=== PATIENT | female | born 1970 | race Caucasian/White ===

== ENCOUNTER 2017-01-14 07:33 | Day surgery (SDC) | payer BC ==
[2017-01-12 09:35] VITALS: BMI 26.6
[~2017-01-14 07:33] MED LIST: HEPARIN SODIUM,PORCINE 5,000 UNIT/ML 1 ML VIAL SQ ONE; ceFAZolin IN SWFI 2 GM/20 ML SYRINGE IVP ONE
[2017-01-14] MEDS ORDERED: ONDANSETRON 4 MG/2 ML VIAL IVP ONE (07:54)
[2017-01-14] MEDS ORDERED: MIDAZOLAM 2 MG/2 ML VIAL IV PRN (07:54)
[2017-01-14] MEDS ORDERED: SCOPOLAMINE 1.5MG/72HR PATCH TRANSDERM ONE (07:54)
[2017-01-14] MEDS ORDERED: HYDROmorphone 0.5 MG/0.5 ML SYRINGE IVP PRN (07:54)
[2017-01-14] MEDS ORDERED: DEXAMETHASONE SOD PHOSPHATE 10 MG/ML 1 ML VIAL IV ONE (07:54)
[2017-01-14] MEDS ORDERED: LIDOCAINE 1% 20 ML VIAL (10MG/ML) FOR IV START INTRADERMA PRN (07:54)
[2017-01-14] MEDS: LACTATED RINGERS 1,000 ML IV SCH ×2 (08:39→09:38)
[2017-01-14] MEDS ORDERED: ROCURONIUM BROMIDE 10 MG/ML 10 ML VIAL IV ONE (09:43)
[2017-01-14] MEDS ORDERED: MIDAZOLAM 2 MG/2 ML VIAL ONE (09:43)
[2017-01-14] MEDS ORDERED: PROPOFOL 10 MG/ML 20 ML VIAL IV ONE ×2 (09:43)
[2017-01-14] MEDS ORDERED: fentaNYL (PF) 50 MCG/ML 2 ML AMP ONE (09:43)
[2017-01-14] MEDS ORDERED: LIDOCAINE 1% INJ 10MG/ML (20 ML MDV) ONE (09:43)
[2017-01-14] MEDS ORDERED: BUPIVACAINE (PF) 0.25% 30 ML VIAL SQ ONE (10:00)
[2017-01-14] MEDS ORDERED: NALOXONE 0.4 MG/ML 1 ML VIAL IV PRN (10:57)
[2017-01-14] MEDS ORDERED: traMADol 50 MG TAB PO PRN (10:57)
[2017-01-14 11:06] VITALS: TEMP 98.1
--- NOTE | 2017-01-14 11:07 | P.OP ---
Date of Procedure: 01/14/17 Procedure(s) Performed: PREOPERATIVE DIAGNOSIS: Chronic cholecystitis POSTOPERATIVE DIAGNOSIS: Same PROCEDURE: Laparoscopic cholecystectomy SURGEON: Edmond EBL: Minimal see anesthesia record ANESTHESIA: Gen. COMPLICATIONS: None OPERATIVE PROCEDURE: The patient was brought and placed on the operating room table in the supine position. The patient was placed under general anesthesia at that time. The abdomen was prepped and draped in the usual sterile fashion. A small vertical infraumbilical incision was made. The fascia was grasped with the Leonila forceps. The fascia was retracted anteriorly. The Veress needle was advanced into the peritoneal cavity. The saline drop test was normal. Insufflation took place up to 15 mmHg. A 5 mm optical trocar was advanced and the peritoneal cavity. 2 additional 5 mm trochars were placed in the right upper quadrant under direct visualization. A 10 mm trocar was advanced into the epigastric incision site. The patient had a adhesion between a portion of fat from the omentum and the falciform ligament. This was divided using electrocautery. The gallbladder was mildly inflamed. The most significant inflammation was actually at the tear aspect of the infundibulum. The gallbladder was retracted superiorly and laterally. The peritoneum overlying the infundibulum was bluntly dissected. The patient's cystic duct was visualized. The junction between the cystic duct common and hepatic duct was identified. The cystic duct was then divided after placement of 3 10 mm clips on the patient's side and one on the specimen side. The cystic artery was identified and clipped as well. A small vessel was seen along the gallbladder fossa and clipped as well. The gallbladder was then removed from the liver bed using electrocautery. The gallbladder was then removed from the epigastric trocar site with an Endo Catch bag. The gallbladder fossa was irrigated with saline. There was no evidence of any bleeding or biliary drainage seen. The trochars were then removed. The fascia at the 10 millimeter site was closed using a [place] 0 Vicryl stitch. The skin at all 4 sites was closed using 4-0 Monocryl stitch. At the end of this procedure the sponge and needle counts were correct. DISPOSITION: Stable to the recovery room
[2017-01-14] MEDS ORDERED: LACTATED RINGERS 1,000 ML IV ONE ×2 (11:31)
[2017-01-14] MEDS ORDERED: traMADol 50 MG TAB PO ONE (12:12)
[2017-01-14 12:14] VITALS: RESP 18
[2017-01-14 13:14] VITALS: BP 107/72; PULSE 80
== END 2017-01-14 14:10 | disposition home or self-care (01) ==
LOC: OR 07:33
PROVIDERS: ATTEND Surgery
DX: K80.10 Calculus of gallbladder with chronic cholecystitis without obstruction (principal); K66.0 Peritoneal adhesions (postprocedural) (postinfection); F32.9 Major depressive disorder, single episode, unspecified; E55.9 Vitamin D deficiency, unspecified; E03.9 Hypothyroidism, unspecified; N97.9 Female infertility, unspecified; Z88.5 Allergy status to narcotic agent; Z79.899 Other long term (current) drug therapy; Z82.49 Family history of ischemic heart disease and other diseases of the circulatory system; Z80.0 Family history of malignant neoplasm of digestive organs
CPT/HCPCS: 47562; 81025; 88304; J2250; J1644; J1100; J0690; J2405; J2001; J3010; J2704; J1170

== ENCOUNTER → 2017-03-09 | Outpatient (CLI) | payer BC ==
--- NOTE | 2017-03-10 09:16 | MM ---
Reason for exam: screening (asymptomatic). Last mammogram was performed 1 year and 10 months ago. History: Family history of breast cancer in 2 maternal aunts at age 60. Reductions of both breasts, 2005. Took hormonal contraceptives for 7 years beginning at age 18. Physical Findings: A clinical breast exam by your physician is recommended on an annual basis and results should be correlated with mammographic findings. MG Screening Mammo w CAD Bilateral CC and MLO view(s) were taken. Prior study comparison: May 16, 2015, bilateral MG screening mammo w CAD. January 01, 2010, bilateral diagnostic digital mammog. There are scattered fibroglandular densities. There is no discrete abnormality. No significant changes when compared with prior studies. ASSESSMENT: Negative, BI-RAD 1 RECOMMENDATION: Routine screening mammogram of both breasts in 1 year.
== END | disposition home or self-care (01) ==
LOC: RADMAMWWP 07:29
PROVIDERS: ATTEND Family Medicine
DX: Z12.31 Encounter for screening mammogram for malignant neoplasm of breast (principal)
CPT/HCPCS: 77067

== ENCOUNTER 2019-02-25 09:17 | Day surgery (SDC) | payer BC ==
[2019-02-22 15:49] VITALS: BMI 25.0
[~2019-02-25 09:17] MED LIST changes: -HEPARIN SODIUM,PORCINE 5,000 UNIT/ML 1 ML VIAL SQ ONE; +LACTATED RINGERS 1,000 ML IV SCH; -ceFAZolin IN SWFI 2 GM/20 ML SYRINGE IVP ONE
[2019-02-25 09:42] VITALS: RESP 16; TEMP 97.6
[2019-02-25] MEDS ORDERED: PROPOFOL 10 MG/ML 20 ML VIAL IV ONE (10:49)
--- NOTE | 2019-02-25 10:52 | P.GSHP ---
History of Present Illness H&P Date: 02/25/19 Chief Complaint: Screening colonoscopy, family history of colon cancer This is a 48-year-old female who presents today for colonoscopy. Patient has a strong family history with her mother having colon cancer. Patient denies any significant GI complaints. Past Medical History Past Medical History: Thyroid Disorder Additional Past Medical History / Comment(s): HASHIMOTOS. History of Any Multi-Drug Resistant Organisms: None Reported Past Surgical History: Breast Surgery, Cholecystectomy Additional Past Surgical History / Comment(s): breast reduction Past Anesthesia/Blood Transfusion Reactions: Previous Problems w/ Anesthesia, Family History of Problems w/ Anesthesia, Motion Sickness, Postoperative Nausea & Vomiting (PONV) Additional Past Anesthesia/Blood Transfusion Reaction / Comment(s): hard time waking up. MOTHER HAS PONV Past Psychological History: No Psychological Hx Reported Smoking Status: Never smoker Past Alcohol Use History: Occasional Past Drug Use History: None Reported - Past Family History Mother Family Medical History: Cancer Additional Family Medical History / Comment(s): COLON CANCER Medications and Allergies Home Medications Medication Instructions Recorded Confirmed Type Levothyroxine Sodium [Synthroid] 88 mcg PO DAILY 01/12/17 02/25/19 History Ergocalciferol [Vitamin D2] 50,000 unit PO Q7D 02/22/19 02/25/19 History Ibuprofen [Motrin Ib] 400 mg PO DIRECTED PRN 02/22/19 02/22/19 History Allergies Allergy/AdvReac Type Severity Reaction Status Date / Time codeine Allergy legs numb Verified 02/25/19 09:35 and shaky Surgical - Exam Vital Signs Temp Pulse Resp BP Pulse Ox 97.6 F 96 16 133/83 98 02/25/19 09:41 02/25/19 09:41 02/25/19 09:41 02/25/19 09:41 02/25/19 09:41 - General well developed, well nourished, no distress - Eyes PERRL - ENT normal pinna - Neck no masses - Respiratory normal expansion - Cardiovascular Rhythm: regular - Abdomen Abdomen: soft, non tender Assessment and Plan Assessment: Family history colonic Cancer We'll perform screening colonoscopy.
--- NOTE | 2019-02-25 11:11 | P.OP ---
Date of Procedure: 02/25/19 Preoperative Diagnosis: Family history: Cancer Screening colonoscopy Postoperative Diagnosis: Right sided diverticulosis Procedure(s) Performed: Colonoscopy Anesthesia: MAC Surgeon: Paulino Dueñas Pathology: none sent Condition: stable Disposition: PACU Description of Procedure: The patient's placed on the endoscopy table in the lateral position. She received IV sedation. Digital rectal exam performed which revealed no rebound. The flexible colonoscope was then placed patient anus passed throughout the colon. The colon was quite tortuous. The ileocecal valve was visually is. In the cecum and right colon was a few scattered diverticula. Scope was withdrawn the remainder the ascending colon, transverse colon and descending colon appeared normal. The; appeared normal. There were no polyps or tumors seen throughout the entire colon. The rectum was normal scope was withdrawn for patient.
[2019-02-25 11:32] VITALS: BP 139/83; PULSE 82
== END 2019-02-25 11:49 ==
LOC: ORWHC2ENDO 09:17
PROVIDERS: ATTEND Surgery
DX: Z12.11 Encounter for screening for malignant neoplasm of colon (principal); Q43.9 Congenital malformation of intestine, unspecified; K57.30 Diverticulosis of large intestine without perforation or abscess without bleeding; Z80.0 Family history of malignant neoplasm of digestive organs; E06.3 Autoimmune thyroiditis; Z90.49 Acquired absence of other specified parts of digestive tract; Z98.890 Other specified postprocedural states; Z79.890 Hormone replacement therapy; Z79.899 Other long term (current) drug therapy; Z88.5 Allergy status to narcotic agent
CPT/HCPCS: 81025; 84703; J2704; G0105; 45378

== ENCOUNTER → 2020-03-20 | Outpatient (CLI) | payer BC ==
[2020-03-20 09:03] LABS: HCT 42.4 % (34.0-46.0); MCH 32.2 pg (25.0-35.0); MCHC 33.1 g/dL (31.0-37.0); MCV 97.2 fL (80.0-100.0); Mean Platelet Volume 7.8; Platelet Count 139 k/uL (150-450); RBC 4.36 m/uL (3.80-5.40); WBC 3.5 k/uL (3.8-10.6)
[2020-03-20 09:04] LABS: Basophils % (A) 1 %; Eosinophils # (A) 0.1 k/uL (0-0.7); Eosinophils % (A) 2 %; Lymphocytes # (A) 1.4 k/uL (1.0-4.8); Lymphocytes % (A) 40 %; Monocytes # (A) 0.2 k/uL (0-1.0); Monocytes % (A) 7 %; Neutrophils # (A) 1.7 k/uL (1.3-7.7); Neutrophils % (A) 50 %
[2020-03-20 09:14] LABS: ALT 194 U/L (4-34); AST 145 U/L (14-36); African American GFR (CKD) >90 (>60 ml/min/1.73 sqM); Albumin 4.1 g/dL (3.5-5.0); Alkaline Phosphatase 69 U/L (38-126); Anion Gap 4 mmol/L; Blood Urea Nitrogen 9 mg/dL (7-17); Calcium 9.1 mg/dL (8.4-10.2); Carbon Dioxide 31 mmol/L (22-30); Chloride 103 mmol/L (98-107); Glucose 90 mg/dL (74-99); Non-African American GFR(CKD) >90 (>60 ml/min/1.73 sqM); Potassium 4.6 mmol/L (3.5-5.1); Prothrombin Time 10.5 sec (9.0-12.0); Sodium 138 mmol/L (137-145); Total Bilirubin 0.4 mg/dL (0.2-1.3); Total Protein 7.2 g/dL (6.3-8.2)
--- NOTE | 2020-03-20 11:05 | US ---
EXAMINATION TYPE: US liver DATE OF EXAM: 03/20/2020 COMPARISON: NONE CLINICAL HISTORY: R74.01 Elevated liver enzymes. EXAM MEASUREMENTS: Liver Length: 15.9 cm Gallbladder Wall: Surgically absent CBD: 0.3 cm Right Kidney: 10.5 x 3.5 x 4.7 cm Pancreas: portions visualized wnl, partially obscured by overlying bowel gas Liver: right hepatic vein not visualized Gallbladder: Surgically absent Evidence for sonographic Fry's sign: no CBD: wnl Right Kidney: wnl IMPRESSION: The right hepatic vein is markedly visualized on this is nonspecific. Limited examination given overl rick bowel content.
[2020-03-20 15:25] LABS: Iron 89 ug/dL (50-170); Total Iron Binding Capacity 319 ug/dL (228-460)
[2020-03-20 15:33] LABS: Ferritin 211.4 ng/mL (10.0-291.0)
[2020-03-20 19:21] LABS: Hepatitis A Antibody IgM Non-Reactive (Non-Reactive); Hepatitis B Core IgM Non-Reactive (Non-Reactive); Hepatitis B Surface Antigen Non-Reactive (Non-Reactive); Hepatitis C IgG Antibody Non-Reactive (Non-Reactive)
[2020-03-20 19:29] LABS: Protein, Total 6.7 g/dL (6.2-8.2)
[2020-03-21 11:46] LABS: Liver/Kidney Microsome Antibod 1.2 UNITS (<=20)
[2020-03-21 12:58] LABS: Albumin 3.95 g/dL (3.80-4.90); Gamma Globulin 1.17 g/dL (0.70-1.50)
[2020-03-21 13:15] LABS: Alpha Fetoprotein, Tumor Mkr 7.6 ng/mL (0.0-7.9)
[2020-03-21 13:41] LABS: Ceruloplasmin 18.2 mg/dL (20.0-60.0)
[2020-03-21 14:31] LABS: Alpha 1 Antitrypsin 88.4 mg/dL (99.0-242.0)
== END | disposition home or self-care (01) ==
LOC: RADUSWWP 07:34
PROVIDERS: ATTEND Internal Medicine Gastroenterology
DX: R74.01 Elevation of levels of liver transaminase levels (principal)
CPT/HCPCS: 36415; 76705; 80053; 80074; 82103; 82105; 82390; 82728; 83516; 83540; 83550; 84165; 85025; 85610; 86038; 86039; 86376

== ENCOUNTER → 2020-04-02 | Day surgery (SDC) | payer BC ==
[~2020-04-02] MED LIST changes: +ALPRAZolam 0.5 MG TAB PO PRN; -LACTATED RINGERS 1,000 ML IV SCH
[2020-04-02 09:32] LABS: Mean Platelet Volume 7.4; Platelet Count 166 k/uL (150-450)
[2020-04-02 09:35] VITALS: TEMP 98.3
[2020-04-02 10:09] LABS: Prothrombin Time 10.3 sec (9.0-12.0)
[2020-04-02 11:09] VITALS: RESP 16
--- NOTE | 2020-04-02 11:37 | CT ---
EXAMINATION TYPE: CT biopsy liver DATE OF EXAM: 04/02/2020 COMPARISON: NONE HISTORY: Elevated LFTs CT DLP: 652mGycm The procedure was explained to the patient. The risks, complications, benefits, and alternatives wer e discussed and any questions were answered. Informed consent was obtained. Patient was placed supi ne on the CT table and prepped and draped in the usual sterile fashion. All elements of maximal barrier and sterile technique utilized. Utilizing CT guidance, an 18 gauge core biopsy needle access into the right lobe of the liver was ac hieved and a single 18 gauge core sample was obtained. The patient was stable throughout the procedu re and remained stable upon discharge. IMPRESSION: 1. Successful 18 gauge core biopsy of the liver.
[2020-04-02 13:42] VITALS: BP 118/78; PULSE 70
== END ==
LOC: RADPROMAIN 08:42
PROVIDERS: ATTEND Internal Medicine Gastroenterology
DX: K75.81 Nonalcoholic steatohepatitis (NASH) (principal)
CPT/HCPCS: 36415; 47000; 77012; 85049; 85610; 88307; 88313

== ENCOUNTER → 2021-01-04 | Outpatient (CLI) | payer BC ==
[2021-01-04 23:25] LABS: Basophils # (A) 0.02 X 10*3/uL (0.00-0.10); Basophils % (A) 0.6 %; Eosinophils # (A) 0.05 X 10*3/uL (0.04-0.35); Eosinophils % (A) 1.5 %; HCT 42.1 % (37.2-46.3); HGB 13.1 g/dL (12.0-15.0); Lymphocytes # (A) 1.51 X 10*3/uL (0.90-5.00); Lymphocytes % (A) 45.6 %; MCH 30.2 pg (27.0-32.0); MCHC 31.1 g/dL (32.0-37.0); Mean Platelet Volume 11.3 fL (9.5-12.2); Monocytes # (A) 0.41 X 10*3/uL (0.20-1.00); Monocytes % (A) 12.4 %; Neutrophils # (A) 1.31 X 10*3/uL (1.80-7.70); Neutrophils % (A) 39.6 %; Platelet Count 153 X 10*3/uL (140-440); RBC 4.34 X 10*6/uL (4.10-5.20); RDW 11.5 % (11.5-14.5); WBC 3.31 X 10*3/uL (4.50-10.00)
[2021-01-05 09:30] LABS: African American GFR (CKD) 117.9 (60.0-200.0); Albumin 4.4 g/dL (3.8-4.9); Albumin/Globulin Ratio 1.57 (1.60-3.17); Anion Gap 15.2 mmol/L (4.00-12.00); Blood Urea Nitrogen 9.8 mg/dL (9.0-27.0); Calcium 9.8 mg/dL (8.7-10.3); Carbon Dioxide 22.8 mmol/L (21.6-31.8); Globulin 2.8 g/dL (1.6-3.3); Non-African American GFR(CKD) 101.7 (60.0-200.0); Potassium 4.8 mmol/L (3.5-5.5); Total Bilirubin 0.3 mg/dL (0.30-1.20); Total Protein 7.2 g/dL (6.2-8.2)
== END | disposition home or self-care (01) ==
LOC: LABWHC1 14:30
PROVIDERS: ATTEND Nurse Practitioner
DX: K75.81 Nonalcoholic steatohepatitis (NASH) (principal)
CPT/HCPCS: 36415; 80053; 85025

== ENCOUNTER → 2023-10-07 | Outpatient (CLI) | payer BC ==
--- NOTE | 2023-11-04 12:59 | US ---
Tang Hooks J ID: [id number] : 1970 EXAMINATION TYPE: US abdomen complete DATE OF EXAM: 10/07/2023 COMPARISON: 03/20/2020 CLINICAL INDICATION: 53-year-old female HANEY and previous cholecystectomy TECHNIQUE: Multiple sonographic images of the abdomen are obtained. FINDINGS: EXAM MEASUREMENTS: Liver Length: 14.7 cm Gallbladder: Surgically absent. CBD: 4.0 mm, within normal limits. Spleen: 10.4 cm Pancreas: Only small portions of the pancreatic body is seen. Remainder is obscured by bowel gas sha dowing. Main pancreatic duct prominent but normal caliber measuring 2 mm. Liver: Overall homogeneous parenchyma. No focal lesion. Gallbladder: wnl Evidence for sonographic Fry's sign: CBD: 4.0 mm. Spleen: wnl The right and left kidneys measure 9.5 and 11.0 cm, respectively, without hydronephrosis. Upper IVC: Limited visualization due to body habitus. Abd Aorta: Normal caliber measuring up to 2.4 cm. IMPRESSION: 1. No significant fatty infiltration of the liver is apparent by ultrasound. 2. Status post cholecystectomy. No biliary ductal dilatation.
== END | disposition home or self-care (01) ==
LOC: RADUSWWP 18:17
PROVIDERS: ATTEND Family Medicine
DX: R94.5 Abnormal results of liver function studies (principal); R68.89 Other general symptoms and signs; Z90.49 Acquired absence of other specified parts of digestive tract
CPT/HCPCS: 76700

== ENCOUNTER → 2023-11-10 | Outpatient (CLI) | payer BC ==
--- NOTE | 2023-11-15 20:22 | MM ---
Reason for Exam: Screening (asymptomatic). Last mammogram was performed 1 year(s) and 2 month(s) ago. Patient History: Menarche at age 12. First Full-Term at age 30. Perimenopausal. Hormonal Contraceptives for 7 years from age 18 until age 25. 2005, Bilateral Reduction. Maternal aunt had breast cancer, age 60. Maternal aunt had breast cancer, age 60. Risk Values: Cris 5 year model risk: 1.3%. NCI Lifetime model risk: 10.5%. Prior Study Comparison: 05/16/2015 Bilateral Screening Mammogram, [facility]. 03/09/2017 Bilateral Screening Mammogram, [facility]. 09/04/2022 Bilateral MG 3D screening mammo w/cad, [facility]. Tissue Density: There are scattered areas of fibroglandular density. Findings: Analyzed By CAD. The pattern is symmetrical. There is some increased density in the subareolar right breast. Underlying discrete mass is not evident. Dyspnea been present 2015. Short-term follow-up is recommended. No suspicious groups of microcalcifications, spiculated or lobular masses, architectural distortion or other secondary signs of malignancy are mammographically apparent. Overall Assessment: Probably benign, BI-RAD 3 Management: Diagnostic Mammogram of the right breast in 6 months. A negative mammogram report should not preclude additional follow up of suspicious palpable abnormalities. Patient should continue monthly self breast exam. A clinical breast exam by your physician is recommended on an annual basis and results should be correlated with mammographic findings. Note on Cris scores and lifetime risk: 1. A Cris score greater than 3% is considered moderate risk. If this is the case, consider specialist referral to assess eligibility for a risk reducing agent. 2. If overall lifetime risk for the development of breast cancer is 20% or higher, the patient may qualify for future screening with alternating mammogram and breast MRI. [facility], , 11/15/2023 8:19 PM. Electronically signed and approved by: Cesar Hoff D.O. Radiologis
== END | disposition home or self-care (01) ==
LOC: RADMAMWWP 07:05
PROVIDERS: ATTEND Family Medicine
DX: Z80.3 Family history of malignant neoplasm of breast
CPT/HCPCS: 77063; 77067